=== PATIENT | female | born 1955 | race Two or more races ===

== ENCOUNTER → 2018-09-01 | Outpatient (CLI) | payer OTHER | END | disposition home or self-care (01) | LOC: NUCLEAR 13:28 | DX: I82.401 Acute embolism and thrombosis of unspecified deep veins of right lower extremity (principal) ==

== ENCOUNTER 2018-09-30 07:04 | Day surgery (SDC) | payer OTHER ==
[~2018-09-30 07:04] MED LIST: AMBIEN10 MG PO; CLONAZEPAM1 MG PO; JANUVIA100 MG PO; LANTUS SOL100 UNIT/1; LIPITOR40 MG PO
== END 2018-09-30 17:45 | disposition home or self-care (01) ==
LOC: CIR.AMB 07:04
DX: R15.9 Full incontinence of feces (principal)
CPT/HCPCS: 64581; C1778

== ENCOUNTER → 2018-10-16 | Day surgery (SDC) | payer OTHER | END | disposition home or self-care (01) | LOC: CIR.AMB 05:00 | DX: R15.9 Full incontinence of feces (principal) | CPT/HCPCS: 64590; C1767 ==

== ENCOUNTER 2019-08-02 08:10 | Outpatient (CLI) | payer OTHER | END 2019-08-02 08:13 | disposition home or self-care (01) | LOC: SONOGRAMA 08:10 | DX: E04.1 Nontoxic single thyroid nodule (principal) ==

== ENCOUNTER 2020-09-28 06:25 | Day surgery (SDC) | payer OTHER ==
[~2020-09-28 06:25] MED LIST changes: +GLIMEPIRIDE1 MG; +METFORMIN HCL500 M3 PO; +SYNTHROID75 MCG PO
[2020-09-28] MEDS ORDERED: MORGIDOX100 MG PO (12:03)
== END 2020-09-28 16:29 | disposition home or self-care (01) ==
LOC: CIR.AMB 06:25
PROVIDERS: ATTEND Obstetrics & Gynecology
DX: N84.0 Polyp of corpus uteri (principal); Z20.828 Contact with and (suspected) exposure to other viral communicable diseases

== ENCOUNTER 2021-12-17 06:00 | Day surgery (SDC) | payer OTHER ==
[~2021-12-17 06:00] MED LIST changes: +MORGIDOX100 MG PO
== END 2021-12-17 15:00 | disposition home or self-care (01) ==
LOC: CIR.AMB 06:00
PROVIDERS: ATTEND Colon & Rectal Surgery
DX: R15.9 Full incontinence of feces (principal); Z88.8 Allergy status to other drugs, medicaments and biological substances; T85.111A Breakdown (mechanical) of implanted electronic neurostimulator of peripheral nerve electrode (lead), initial encounter; E03.9 Hypothyroidism, unspecified; R20.2 Paresthesia of skin